=== PATIENT | male | born 1950 | race Caucasian/White ===

== ENCOUNTER → 2017-03-25 | Outpatient (CLI) | payer OTHER ==
[~2017-03-25] VITALS: Ht 162.6 cm; Wt 61.9 kg
[2017-03-25 11:22] VITALS: BP 163/104; PULSE 72; BMI 33.4
[2017-03-25 12:09] VITALS: BP 119/81; PULSE 103; Ht 162.6 cm; Wt 61.9 kg
== END | disposition home or self-care (01) ==
LOC: C.NEUR 10:30
PROVIDERS: ATTEND Internal Medicine Pulmonary Disease
DX: F51.04 Psychophysiologic insomnia (principal); G47.33 Obstructive sleep apnea (adult) (pediatric); F41.8 Other specified anxiety disorders

== ENCOUNTER → 2017-04-13 | Outpatient (CLI) | payer OTHER ==
--- NOTE | 2017-04-21 09:20 | Sleep Study ---
Sleep Study Report Date of Service: 04/14/2017 Sleep Study Report Clinical data: The patient is a 66-year-old male with a longstanding history of insomnia. He does have a history of anxiety and depression. Approximately 10 years ago he had 2 studies done in [facility]. The patient states that he did not sleep in either of those sleep studies. However he was given a CPAP device that he kept for only 1 night and gave it back. Thus 1 would assume that he had some degree of sleep apnea. More recently he had a sleep study done on at [facility]. He did not sleep at all during night. They tried to refer him to Psychology for cognitive behavior therapy but his insurance would not authorize this. His [place] score was 0. On April 20, 2017 he underwent a home sleep apnea test using a [employer] type 3 monitor. Recording results: Total recording time was 10.0 hours. Patient monitoring time an estimated sleep time was 7.8 hours. Respiratory data: Patient had a total of 21 respiratory events including 3 obstructive apneas and 18 hypopneas. The 4 percent desaturation rule was utilized. The YASMANY was 2.7 which would be within the limits of normal. The maximum respiratory event was 41 seconds. Oximetry data: A mean saturation was 88 percent. Minimum saturation was 81 percent. The time below 89 percent was 353 minutes. Heart rate data: The lowest heart rate was 61 beats per minute. The mean heart rate was 71 beats per minute. Snoring data: Snoring was seen throughout the test. Impressions: 1. No definite evidence of obstructive sleep apnea 2. Nocturnal hypoxia 3. Chronic insomnia likely related to underlying anxiety and depression Comments: The patient had a mild number of apneas and hypopneas with a normal YASMANY. His saturations were low throughout. However the patient had a lot of movement and the thermistor was not working as well as it should all the time. Thus there may well be technical problems with this study. There is no definite way to determine how much time he actually slept. He did not start the test until after 3 a.m.. The patient's chief complaints had been insomnia. As noted he has a history of anxiety and depression which may play a significant role in this. Has already had total of 3 in-lab sleep studies. The most recent was in 2015 and he did not have any sleep at all. Thus there is still questions as to whether the patient may have sleep apnea or not. Recommendations: 1. Communication should be done with the patient to determine how much sleep time he believes he had during the study. 2. Depending upon the situation consideration may be given to doing a repeat in- lab sleep study. At the very minimum the patient should have an overnight pulse oximetry study to determine if he has significant hypoxia. Copies To 1: Darren Siegel, DO
== END | disposition home or self-care (01) ==
LOC: C.NEUR 10:42
PROVIDERS: ATTEND Internal Medicine Pulmonary Disease
DX: G47.33 Obstructive sleep apnea (adult) (pediatric) (principal); F51.04 Psychophysiologic insomnia; F41.8 Other specified anxiety disorders